=== PATIENT | female | born 1985 | race Caucasian/White ===

== ENCOUNTER 2021-05-01 21:03 | Emergency (ER) | payer BC ==
[~2021-05-01] VITALS: Ht 175.3 cm; Wt 74.5 kg
[~2021-05-01 21:03] MED LIST: LORTAB 5/500 501 TAB PO; PHENERGAN 25 TA25 MG PO
[2021-05-01 21:42] VITALS: BP 111/68; PULSE 76; TEMP 98.5
[2021-05-01 22:46] LABS: COLLECTION METHOD CLEAN CATCH
[2021-05-01 22:49] LABS: HEMOGLOBIN 12.6 g/dl (12.5-16.0); MEAN CELL VOLUME 87 fl (80.0-100.0); MEAN CORPUSCULAR HEMOGLOBIN 30 pg (27.0-31.0); MEAN CORPUSCULAR HGB CONC 34 g/dl (33.0-37.0); MEAN PLATELET VOLUME 10.1 fl (7.4-10.4); PLATELET COUNT 309 K/mm3 (130-400); REDCELL DISTRIBUTION WIDTH-CV 12.2 % (11.5-14.5)
[2021-05-01 22:52] LABS: HEMATOCRIT 36.6 % (37.0-47.0)
[2021-05-01 22:56] LABS: MUCOUS Present /lpf; PH 5 (5-8); URINE APPEARANCE Hazy; URINE BACTERIA Rare /hpf; URINE BILIRUBIN Negative (NEGATIVE); URINE BLOOD 2+ (NEGATIVE); URINE COLOR Yellow; URINE GLUCOSE Negative (NEGATIVE); URINE KETONE Negative (NEGATIVE); URINE LEUKOCYTE ESTERASE Negative (NEGATIVE); URINE NITRATE Negative (NEGATIVE); URINE PROTEIN(semi-quant) 1+ (NEGATIVE); URINE UROBILINOGEN Negative (NEGATIVE)
[2021-05-01 23:05] LABS: ALBUMIN 3.7 gm/dL (3.5-5.0); BILIRUBIN,TOTAL 0.4 mg/dL (0.2-1.2); C-REACTIVE PROTEIN 0.2 mg/dL (0.00-0.50); CALCIUM 8.9 mg/dL (8.4-10.2); CREATININE, serum 0.78 mg/dL (0.57-1.11); POTASSIUM 3.2 mmol/L (3.5-4.5); TOTAL PROTEIN 7.1 gm/dL (6.2-8.1)
[2021-05-01 23:34] LABS: BAND 19 % (0-10); EOSINOPHIL 2 % (0-4); NEUTROPHILS 40 % (42.0-75.2)
[2021-05-01 23:35] LABS: PLATELET ESTIMATE NORMAL (NORMAL)
[2021-05-01 23:40] LABS: LYMPHOCYTE 28 % (20.0-51.0)
[2021-05-02] MEDS ORDERED: ALINIA500 MG PO (09:35)
== END 2021-05-02 00:41 | disposition home or self-care (01) ==
LOC: COL.ER 21:03
PROVIDERS: Physician Assistant
DX: E87.6 Hypokalemia (principal); R19.7 Diarrhea, unspecified; R10.9 Unspecified abdominal pain
CPT/HCPCS: J2405; J7030

== ENCOUNTER 2021-06-09 16:40 | Emergency (ER) | payer BC ==
[~2021-06-09] VITALS: Ht 175.3 cm; Wt 75.0 kg
[~2021-06-09 16:40] MED LIST changes: +ALINIA500 MG PO
[2021-06-09 16:45] VITALS: TEMP 98.8
[2021-06-09 18:00] VITALS: BP 128/108; PULSE 105
[2021-06-09] MEDS ORDERED: LAMICTAL 100MG100 MG PO (18:18)
[2021-06-09] MEDS ORDERED: ZOFRAN ODT4 MG PO (18:19)
== END 2021-06-09 18:45 | disposition home or self-care (01) ==
LOC: COL.ER 16:40
DX: G40.909 Epilepsy, unspecified, not intractable, without status epilepticus (principal)
CPT/HCPCS: J2405; J2765